=== PATIENT | male | born 1990 | race Caucasian/White ===

== ENCOUNTER 2020-07-17 10:45 | Inpatient (IN) | payer OTHER ==
--- NOTE | 2020-07-17 11:22 | BHS.RME ---
Substance Use & Tx History - Substance Use History Heroin Substance amount: 2 BAGS Frequency of use: Daily Substance route: Injection (ex: intravenous or skin popping) Date of Last Use: 07/16/20 Cocaine- Powder Substance amount: 4-6 BAGS Frequency of use: Daily Substance route: Injection (ex: intravenous or skin popping) Date of Last Use: 07/16/20 (STARTED AT AGE 29) Marijuana/Hashish Substance amount: 1 JOINT Frequency of use: Less than 3 times per week Substance route: Smoking Date of Last Use: 07/17/20 (STARTED AGE 18) Nicotine Substance amount: 5 CIGGS Frequency of use: Daily Substance route: Smoking Date of Last Use: 07/17/20 (STARTED AGE 18) Physical/Psych/Mental Status - Behavior General Behavior: Increased activity (restlessness, agitation) Eye Contact: Normal - Cooperativeness Cooperativeness: Cooperative - Thinking Thought Processes: Tight, Logical, Goal Directed - Physical Health Problems Is patient presently having any pain?: No Does patient presently have any injuries (include location): No Does patient currently have a fever: No Is patient : No COWS - Scale Resting Pulse: 1= [place] 81-100 Sweatin= Chills/Flushing Restless Observation: 1= Difficult to Sit Still Pupil Size: 1= Pupils >than Normal Bone or Joint Aches: 2= Severe Diffuse Aches Runny Nose/ Eye Tearin= Runny Nose/Eyes GI Upset > 30mins: 1= Stomach Cramp Tremor Observation: 1= Tremor [place], Not Seen Yawning Observation: 2= >3x During Session Anxiety or Irritability: 2=Irritable/Anxious Goose Flesh Skin: 3=Piloerection COWS Score: 17
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
[2020-07-17] MEDS ORDERED: MAGNESIUM CITRATE 300 ML BOTTLE PO PRN (13:45)
[2020-07-17] MEDS ORDERED: MAGNESIUM HYDROX 2400MG/30ML ORAL SUSPENSION 30 ML CUP PO PRN (13:45)
[2020-07-17] MEDS ORDERED: BISMUTH SUBSALICYLATE 524 MG/30 ML UD PO PRN (13:45)
[2020-07-17] MEDS ORDERED: ONDANSETRON *ODT* 4 MG TABLET SL PRN (13:45)
[2020-07-17] MEDS ORDERED: MAG HYDROX/AL HYDROX/SIMETH 30 ML UNIT-DOSE CUP PO PRN (13:45)
[2020-07-17] MEDS ORDERED: ACETAMINOPHEN 325 MG TABLET (FP) PO PRN ×2 (13:45)
[2020-07-17] MEDS ORDERED: MENTHOL/PHENOL 1 EACH UD MM PRN (13:45)
[2020-07-17 13:51] VITALS: BMI 26.0
[2020-07-17] MEDS ORDERED: hydrOXYzine PAMOATE 25 MG CAPSULE (FP) PO SCH (14:00)
[2020-07-17] MEDS ORDERED: METHADONE HCL 10 MG TABLET (FOR DETOX USE ONLY) PO ONE (14:00)
[2020-07-17] MEDS: NICOTINE POLACRILEX 2 MG GUM BUC PRN (15:00)
[2020-07-17] MEDS: NICOTINE 7 MG/24 HOURS TOPICAL PATCH TD SCH (15:00)
[2020-07-17] MEDS: PRENATAL VITAMINS W/ FOLIC ACID TABLET (FP) PO SCH (15:04)
[2020-07-17] MEDS: METHOCARBAMOL 500 MG TABLET PO PRN (15:04)
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
[2020-07-17 17:36] LABS: HEMATOCRIT 38.4 % (35.4-49); HEMOGLOBIN 12.1 GM/dL (11.7-16.9); MCH 25.2 pg (25.7-33.7); MCHC 31.5 g/dl (32.0-35.9); MEAN CELL VOLUME 79.8 fl (80-96); MEAN PLT VOLUME 8.9 fl (7.5-11.1); PLATELET COUNT 217 K/MM3 (134-434); RBC 4.81 M/mm3 (4.00-5.60); RDW 14.4 % (11.9-15.9); WHITE BLOOD COUNT 7.9 K/mm3 (4.0-10.0)
[2020-07-17 17:46] LABS: ALBUMIN 3.5 g/dl (3.4-5.0); BILIRUBIN,TOTAL 0.3 mg/dL (0.2-1); BLOOD UREA NITROGEN 9.9 mg/dL (7-18); CALCIUM 9.3 mg/dL (8.5-10.1); CREATININE 0.7 mg/dL (0.55-1.3); POTASSIUM 4.4 mmol/L (3.5-5.1); TOT PROT 8.1 g/dl (6.4-8.2)
[2020-07-17] MEDS: MELATONIN 5 MG TABLETS PO SCH (23:19)
[2020-07-17] MEDS: THIAMINE HCL 100 MG TABLET (FP) PO SCH (23:20)
[2020-07-18] MEDS: METHOCARBAMOL 500 MG TABLET PO PRN ×2 (07:36→19:55)
[2020-07-18] MEDS: IBUPROFEN 400 MG TABLET (FP) PO PRN ×2 (07:36→19:55)
[2020-07-18] MEDS ORDERED: METHADONE HCL 5 MG TABLET (FOR DETOX USE ONLY) ONE (09:24)
[2020-07-18] MEDS ORDERED: METHADONE HCL 10 MG TABLET (FOR DETOX USE ONLY) ONE (09:25)
[2020-07-18] MEDS ORDERED: METHADONE (DETOX) 20 MG, METHADONE (DETOX) 5 MG PO ONE (10:00)
[2020-07-18] MEDS: diazePAM 5 MG TABLET PO PRN ×3 (10:33→19:54)
[2020-07-18] MEDS: PRENATAL VITAMINS W/ FOLIC ACID TABLET (FP) PO SCH (10:33)
[2020-07-18] MEDS: NICOTINE POLACRILEX 2 MG GUM BUC PRN ×2 (10:34→12:52)
[2020-07-18] MEDS: NICOTINE 7 MG/24 HOURS TOPICAL PATCH TD SCH (10:34)
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
--- NOTE | 2020-07-18 13:59 | PN ---
S COWS - Scale Resting Pulse: 0= [place] 80 or Below Sweatin= No chills or Flushing Restless Observation: 0= Sits Still Pupil Size: 1= Pupils >than Normal Bone or Joint Aches: 2= Severe Diffuse Aches Runny Nose/ Eye Tearin= Nasal Congestion GI Upset > 30mins: 2= Nausea/Diarrhea Tremor Observation of Outstretched Hands: 2= Slight Tremor Visible Yawning Observation: 1= 1-2x During Session Anxiety or Irritability: 2=Irritable/Anxious Goose Flesh Skin: 0=Smooth Skin COWS Score: 11 [facility] Progress Note (SOAP) Subjective: alert,irritable,anxious,interrupted sleep,tremor,pain in the body,back,nausea, Objective: 07/18/20 13:57 Vital Signs Temperature 97.1 F L 07/18/20 12:50 Pulse Rate 54 L 07/18/20 12:50 Respiratory Rate 18 07/18/20 12:50 Blood Pressure 120/72 07/18/20 12:50 O2 Sat by Pulse Oximetry (%) 100 07/18/20 12:50 Laboratory Last Values WBC 7.9 K/mm3 (4.0-10.0) 07/17/20 13:45 RBC 4.81 M/mm3 (4.00-5.60) 07/17/20 13:45 Hgb 12.1 GM/dL (11.7-16.9) 07/17/20 13:45 Hct 38.4 % (35.4-49) 07/17/20 13:45 MCV 79.8 fl (80-96) L 07/17/20 13:45 MCH 25.2 pg (25.7-33.7) L 07/17/20 13:45 MCHC 31.5 g/dl (32.0-35.9) L 07/17/20 13:45 RDW 14.4 % (11.9-15.9) D 07/17/20 13:45 Plt Count 217 K/MM3 (134-434) D 07/17/20 13:45 MPV 8.9 fl (7.5-11.1) 07/17/20 13:45 Sodium 138 mmol/L (136-145) 07/17/20 13:45 Potassium 4.4 mmol/L (3.5-5.1) 07/17/20 13:45 Chloride 101 mmol/L (98-107) 07/17/20 13:45 Carbon Dioxide 32 mmol/L (21-32) 07/17/20 13:45 Anion Gap 5 MMOL/L (8-16) L 07/17/20 13:45 BUN 9.9 mg/dL (7-18) 07/17/20 13:45 Creatinine 0.7 mg/dL (0.55-1.3) 07/17/20 13:45 Est GFR (CKD-EPI)AfAm 147.81 07/17/20 13:45 Est GFR (CKD-EPI)NonAf 127.53 07/17/20 13:45 Random Glucose 87 mg/dL (74-106) 07/17/20 13:45 Calcium 9.3 mg/dL (8.5-10.1) 07/17/20 13:45 Total Bilirubin 0.3 mg/dL (0.2-1) 07/17/20 13:45 AST 10 U/L (15-37) L 07/17/20 13:45 ALT 15 U/L (13-61) 07/17/20 13:45 Alkaline Phosphatase 89 U/L (45-117) 07/17/20 13:45 Total Protein 8.1 g/dl (6.4-8.2) 07/17/20 13:45 Albumin 3.5 g/dl (3.4-5.0) 07/17/20 13:45 Syphilis Serology Non-reactive (NONREACTIVE) 07/17/20 13:45 HIV Ag/Ab Combo Qual Negative (NEGATIVE) 07/17/20 13:45 Assessment: 07/18/20 13:58 withdrawal symptom Plan: continue detox methadone regimen,valium 10 mgs po q 4hrs pen for severe withdrawal
[2020-07-18] MEDS: cloNIDine HCL 0.1 MG TABLET PO PRN (15:04)
[2020-07-18] MEDS: hydrOXYzine PAMOATE 25 MG CAPSULE (FP) PO PRN (19:56)
[2020-07-18] MEDS: MELATONIN 5 MG TABLETS PO SCH (23:18)
[2020-07-18] MEDS: QUEtiapine FUMARATE 50 MG TABLET PO SCH (23:18)
[2020-07-18] MEDS: THIAMINE HCL 100 MG TABLET (FP) PO SCH (23:18)
[2020-07-19] MEDS: diazePAM 5 MG TABLET PO PRN ×3 (06:16→19:19)
[2020-07-19] MEDS: IBUPROFEN 400 MG TABLET (FP) PO PRN ×2 (07:17→22:47)
[2020-07-19] MEDS: METHOCARBAMOL 500 MG TABLET PO PRN ×2 (07:17→19:19)
[2020-07-19] MEDS: NICOTINE POLACRILEX 2 MG GUM BUC PRN ×3 (07:28→14:45)
[2020-07-19] MEDS ORDERED: METHADONE HCL 10 MG TABLET (FOR DETOX USE ONLY) PO ONE (10:00)
[2020-07-19] MEDS: PRENATAL VITAMINS W/ FOLIC ACID TABLET (FP) PO SCH (11:04)
[2020-07-19] MEDS: NICOTINE 7 MG/24 HOURS TOPICAL PATCH TD SCH (11:07)
[2020-07-19] MEDS: cloNIDine HCL 0.1 MG TABLET PO PRN (12:49)
--- NOTE | 2020-07-19 17:02 | PN ---
BHS COWS - Scale Resting Pulse: 0= [place] 80 or Below Sweatin= Chills/Flushing Restless Observation: 1= Difficult to Sit Still Pupil Size: 0= Normal to Room Light Bone or Joint Aches: 1= Mild Discomfort Runny Nose/ Eye Tearin= Nasal Congestion GI Upset > 30mins: 1= Stomach Cramp Tremor Observation of Outstretched Hands: 0= None Yawning Observation: 1= 1-2x During Session Anxiety or Irritability: 2=Irritable/Anxious Goose Flesh Skin: 0=Smooth Skin COWS Score: 8 [facility] Progress Note (SOAP) Subjective: Anxious, Sweating, Nasal Congestion, Body Aches. Objective: Patient A & O X 3, Observed Ambulating on Detox Unit Unassisted. In No Acute Distress. 07/19/20 17:02 Vital Signs Temperature 97.3 F L 07/19/20 12:19 Pulse Rate 73 07/19/20 12:19 Respiratory Rate 18 07/19/20 12:19 Blood Pressure 135/79 07/19/20 12:19 O2 Sat by Pulse Oximetry (%) 95 07/19/20 12:19 Laboratory Tests 07/17/20 07/17/20 07/17/20 13:45 13:45 13:45 WBC 7.9 RBC 4.81 Hgb 12.1 Hct 38.4 MCV 79.8 L MCH 25.2 L MCHC 31.5 L RDW 14.4 D Plt Count 217 D MPV 8.9 Sodium 138 Potassium 4.4 Chloride 101 Carbon Dioxide 32 Anion Gap 5 L BUN 9.9 Creatinine 0.7 Est GFR (CKD-EPI)AfAm 147.81 Est GFR (CKD-EPI)NonAf 127.53 Random Glucose 87 Calcium 9.3 Total Bilirubin 0.3 AST 10 L ALT 15 Alkaline Phosphatase 89 Total Protein 8.1 Albumin 3.5 Syphilis Serology Non-reactive COVID-19 ([facility]) HIV Ag/Ab Combo Qual 07/17/20 07/17/20 13:45 14:45 WBC RBC Hgb Hct MCV MCH MCHC RDW Plt Count MPV Sodium Potassium Chloride Carbon Dioxide Anion Gap BUN Creatinine Est GFR (CKD-EPI)AfAm Est GFR (CKD-EPI)NonAf Random Glucose Calcium Total Bilirubin AST ALT Alkaline Phosphatase Total Protein Albumin Syphilis Serology COVID-19 ([facility]) Not detected HIV Ag/Ab Combo Qual Negative Lab Results noted. Assessment: 07/19/20 17:03 WITHDRAWAL SYMPTOMS. Plan: Continue Detox.
[2020-07-19] MEDS: THIAMINE HCL 100 MG TABLET (FP) PO SCH (22:44)
[2020-07-19] MEDS: QUEtiapine FUMARATE 50 MG TABLET PO SCH (22:44)
[2020-07-19] MEDS: MELATONIN 5 MG TABLETS PO SCH (22:45)
[2020-07-20] MEDS ORDERED: METHADONE HCL 5 MG TABLET (FOR DETOX USE ONLY) ONE (09:16)
[2020-07-20] MEDS ORDERED: METHADONE HCL 10 MG TABLET (FOR DETOX USE ONLY) ONE (09:16)
[2020-07-20] MEDS ORDERED: METHADONE (DETOX) 10 MG, METHADONE (DETOX) 5 MG PO ONE (10:00)
[2020-07-20] MEDS: PRENATAL VITAMINS W/ FOLIC ACID TABLET (FP) PO SCH (10:33)
[2020-07-20] MEDS: NICOTINE 7 MG/24 HOURS TOPICAL PATCH TD SCH (10:33)
[2020-07-20] MEDS: NICOTINE POLACRILEX 2 MG GUM BUC PRN ×3 (10:33→17:05)
[2020-07-20] MEDS: hydrOXYzine PAMOATE 25 MG CAPSULE (FP) PO PRN ×2 (10:34→17:05)
[2020-07-20] MEDS: METHOCARBAMOL 500 MG TABLET PO PRN ×2 (10:34→17:05)
[2020-07-20] MEDS: IBUPROFEN 400 MG TABLET (FP) PO PRN ×2 (10:34→17:05)
--- NOTE | 2020-07-20 17:24 | PN ---
BHS COWS - Scale Resting Pulse: 0= [place] 80 or Below Sweatin= Chills/Flushing Restless Observation: 0= Sits Still Pupil Size: 0= Normal to Room Light Bone or Joint Aches: 1= Mild Discomfort Runny Nose/ Eye Tearin= Nasal Congestion GI Upset > 30mins: 1= Stomach Cramp Tremor Observation of Outstretched Hands: 0= None Yawning Observation: 0= None Anxiety or Irritability: 2=Irritable/Anxious Goose Flesh Skin: 0=Smooth Skin COWS Score: 6 [facility] Progress Note (SOAP) Subjective: Interrupted sleep, chronic back pain Objective: 07/20/20 17:23 Last Vital Signs Temp Pulse Resp BP Pulse Ox 98.2 F 71 18 122/63 98 07/20/20 12:56 07/20/20 12:56 07/20/20 12:56 07/20/20 12:56 07/20/20 05:29 Laboratory Tests 07/17/20 07/17/20 07/17/20 13:45 13:45 13:45 WBC 7.9 RBC 4.81 Hgb 12.1 Hct 38.4 MCV 79.8 L MCH 25.2 L MCHC 31.5 L RDW 14.4 D Plt Count 217 D MPV 8.9 Sodium 138 Potassium 4.4 Chloride 101 Carbon Dioxide 32 Anion Gap 5 L BUN 9.9 Creatinine 0.7 Est GFR (CKD-EPI)AfAm 147.81 Est GFR (CKD-EPI)NonAf 127.53 Random Glucose 87 Calcium 9.3 Total Bilirubin 0.3 AST 10 L ALT 15 Alkaline Phosphatase 89 Total Protein 8.1 Albumin 3.5 Syphilis Serology Non-reactive COVID-19 ([facility]) HIV Ag/Ab Combo Qual 07/17/20 07/17/20 13:45 14:45 WBC RBC Hgb Hct MCV MCH MCHC RDW Plt Count MPV Sodium Potassium Chloride Carbon Dioxide Anion Gap BUN Creatinine Est GFR (CKD-EPI)AfAm Est GFR (CKD-EPI)NonAf Random Glucose Calcium Total Bilirubin AST ALT Alkaline Phosphatase Total Protein Albumin Syphilis Serology COVID-19 ([facility]) Not detected HIV Ag/Ab Combo Qual Negative Labs reviewed Assessment: 07/20/20 17:24 Withdrawal sxs Plan: Continue detox Encourage PO water intake
[2020-07-20] MEDS ORDERED: QUEtiapine FUMARATE 25 MG TABLET ONE (21:50)
[2020-07-20] MEDS: THIAMINE HCL 100 MG TABLET (FP) PO SCH (22:18)
[2020-07-20] MEDS: MELATONIN 5 MG TABLETS PO SCH (22:19)
[2020-07-20] MEDS: QUEtiapine FUMARATE 50 MG TABLET PO SCH (22:19)
[2020-07-21] MEDS: IBUPROFEN 400 MG TABLET (FP) PO PRN ×3 (06:18→21:28)
[2020-07-21] MEDS: METHOCARBAMOL 500 MG TABLET PO PRN ×3 (06:20→21:28)
[2020-07-21] MEDS: NICOTINE POLACRILEX 2 MG GUM BUC PRN ×3 (09:02→19:13)
[2020-07-21] MEDS ORDERED: METHADONE HCL 10 MG TABLET (FOR DETOX USE ONLY) PO ONE (10:00)
[2020-07-21] MEDS: hydrOXYzine PAMOATE 25 MG CAPSULE (FP) PO PRN ×2 (10:12→21:28)
[2020-07-21] MEDS: NICOTINE 7 MG/24 HOURS TOPICAL PATCH TD SCH (10:12)
[2020-07-21] MEDS: PRENATAL VITAMINS W/ FOLIC ACID TABLET (FP) PO SCH (10:12)
--- NOTE | 2020-07-21 10:37 | PN ---
BHS COWS - Scale Resting Pulse: 0= [place] 80 or Below Sweatin= No chills or Flushing Restless Observation: 0= Sits Still Pupil Size: 1= Pupils >than Normal Bone or Joint Aches: 1= Mild Discomfort Runny Nose/ Eye Tearin= Nasal Congestion GI Upset > 30mins: 1= Stomach Cramp Tremor Observation of Outstretched Hands: 1= Tremor [place], Not Seen Yawning Observation: 0= None Anxiety or Irritability: 2=Irritable/Anxious Goose Flesh Skin: 0=Smooth Skin COWS Score: 7 B[facility] Progress Note (SOAP) Subjective: alert,irritable,anxious,interrupted sleep,aching pain Objective: 07/21/20 16:44 Vital Signs Temperature 98.2 F 07/21/20 12:55 Pulse Rate 74 07/21/20 12:55 Respiratory Rate 16 07/21/20 12:55 Blood Pressure 125/75 07/21/20 12:55 O2 Sat by Pulse Oximetry (%) 98 07/21/20 12:55 Assessment: 07/21/20 16:45 withdrawal symptom Plan: continue detox methadone regimen,discharge in am
[2020-07-21] MEDS: THIAMINE HCL 100 MG TABLET (FP) PO SCH (21:28)
[2020-07-21] MEDS: QUEtiapine FUMARATE 50 MG TABLET PO SCH (21:28)
[2020-07-21] MEDS: MELATONIN 5 MG TABLETS PO SCH (21:30)
[2020-07-22] MEDS: IBUPROFEN 400 MG TABLET (FP) PO PRN (05:30)
[2020-07-22] MEDS: NICOTINE POLACRILEX 2 MG GUM BUC PRN (05:31)
[2020-07-22] MEDS: METHOCARBAMOL 500 MG TABLET PO PRN (05:31)
[2020-07-22] MEDS ORDERED: METHADONE HCL 5 MG TABLET (FOR DETOX USE ONLY) PO ONE (06:00)
[2020-07-22 06:09] VITALS: BP 109/67; PULSE 58; TEMP 97.8
--- NOTE | 2020-07-22 09:38 | PN ---
BHS COWS - Scale Resting Pulse: 0= [place] 80 or Below Sweatin= No chills or Flushing Restless Observation: 0= Sits Still Pupil Size: 0= Normal to Room Light Bone or Joint Aches: 0= None Runny Nose/ Eye Tearin= None GI Upset > 30mins: 0= None Tremor Observation of Outstretched Hands: 0= None Yawning Observation: 0= None Anxiety or Irritability: 1=Feels Anxious/Irritable Goose Flesh Skin: 0=Smooth Skin COWS Score: 1 S Progress Note (SOAP) Subjective: alert,no complaint Objective: 07/22/20 14:38 Vital Signs Temperature 97.8 F 07/22/20 06:08 Pulse Rate 58 L 07/22/20 06:08 Respiratory Rate 18 07/22/20 06:08 Blood Pressure 109/67 07/22/20 06:08 O2 Sat by Pulse Oximetry (%) 100 07/22/20 06:08 Assessment: 07/22/20 14:38 detox completed,no withdrawal symptom Plan: stable for discharge today,stated will go to [facility] methadone maintenance clinic near where he live
--- NOTE | 2020-07-22 09:38 | DS ---
[facility] Detox Discharge Summary Admission Date: 07/17/20 Discharge Date: 07/22/20 - History Present History: Cannabis Dependence, Cocaine Dependence, Opioid Dependence Additional Comments: alert,oriented x 3 lung clear on auscultation bilaterally abdomen soft,no distension,no pain ambulation in the unit detox completed,no withdrawal symptom stable for discharge today total time discharge spending 30 minutes follow up with after care program as arrangement,will to to methadone maintenance clinic near where he live Pertinent Past History: ptsd insomnia history of mood disorder - Physical Exam Results Vital Signs: Vital Signs Temperature 97.8 F 07/22/20 06:08 Pulse Rate 58 L 07/22/20 06:08 Respiratory Rate 18 07/22/20 06:08 Blood Pressure 109/67 07/22/20 06:08 O2 Sat by Pulse Oximetry (%) 100 07/22/20 06:08 Pertinent Admission Physical Exam Findings: withdrawal signs and symptom Laboratory Last Values WBC 7.9 K/mm3 (4.0-10.0) 07/17/20 13:45 RBC 4.81 M/mm3 (4.00-5.60) 07/17/20 13:45 Hgb 12.1 GM/dL (11.7-16.9) 07/17/20 13:45 Hct 38.4 % (35.4-49) 07/17/20 13:45 MCV 79.8 fl (80-96) L 07/17/20 13:45 MCH 25.2 pg (25.7-33.7) L 07/17/20 13:45 MCHC 31.5 g/dl (32.0-35.9) L 07/17/20 13:45 RDW 14.4 % (11.9-15.9) D 07/17/20 13:45 Plt Count 217 K/MM3 (134-434) D 07/17/20 13:45 MPV 8.9 fl (7.5-11.1) 07/17/20 13:45 Sodium 138 mmol/L (136-145) 07/17/20 13:45 Potassium 4.4 mmol/L (3.5-5.1) 07/17/20 13:45 Chloride 101 mmol/L (98-107) 07/17/20 13:45 Carbon Dioxide 32 mmol/L (21-32) 07/17/20 13:45 Anion Gap 5 MMOL/L (8-16) L 07/17/20 13:45 BUN 9.9 mg/dL (7-18) 07/17/20 13:45 Creatinine 0.7 mg/dL (0.55-1.3) 07/17/20 13:45 Est GFR (CKD-EPI)AfAm 147.81 07/17/20 13:45 Est GFR (CKD-EPI)NonAf 127.53 07/17/20 13:45 Random Glucose 87 mg/dL (74-106) 07/17/20 13:45 Calcium 9.3 mg/dL (8.5-10.1) 07/17/20 13:45 Total Bilirubin 0.3 mg/dL (0.2-1) 07/17/20 13:45 AST 10 U/L (15-37) L 07/17/20 13:45 ALT 15 U/L (13-61) 07/17/20 13:45 Alkaline Phosphatase 89 U/L (45-117) 07/17/20 13:45 Total Protein 8.1 g/dl (6.4-8.2) 07/17/20 13:45 Albumin 3.5 g/dl (3.4-5.0) 07/17/20 13:45 Syphilis Serology Non-reactive (NONREACTIVE) 07/17/20 13:45 COVID-19 ([facility]) Not detected (Not Detected) 07/17/20 14:45 HIV Ag/Ab Combo Qual Negative (NEGATIVE) 07/17/20 13:45 Vital Signs Temperature 97.8 F 07/22/20 06:08 Pulse Rate 58 L 07/22/20 06:08 Respiratory Rate 18 07/22/20 06:08 Blood Pressure 109/67 07/22/20 06:08 O2 Sat by Pulse Oximetry (%) 100 07/22/20 06:08 - Treatment Hospital Course: Detox Protocol Followed, Detoxed Safely, Responded well, Discharged Condition Good, Rehab Referral Accepted Patient has Accepted [facility] - Medication Discharge Medications: Ambulatory Orders NK [No Known Home Medication] 07/17/20 - Diagnosis (1) Opioid withdrawal Status: Acute (2) Substance-induced sleep disorder Status: Acute (3) Cannabis dependence Status: Chronic (4) Cocaine dependence Status: Chronic Qualifiers: Substance use status: uncomplicated Qualified Code(s): F14.20 - Cocaine dependence, uncomplicated (5) History of mood disorder Status: Chronic (6) Nicotine dependence Status: Chronic Qualifiers: Nicotine product type: cigarettes Substance use status: uncomplicated Qualified Code(s): F17.210 - Nicotine dependence, cigarettes, uncomplicated (7) PTSD (post-traumatic stress disorder) Status: Chronic - AMA Did Patient Leave Against Medical Advice: No
== END 2020-07-22 09:00 | disposition home or self-care (01) | DRG 773 ==
LOC: YASAS 10:45 → Y6N 14:37
PROVIDERS: ADMIT Allergy & Immunology; ATTEND Allergy & Immunology
PROC: HZ2ZZZZ Detoxification Services for Substance Abuse Treatment (ICD-10-PCS; principal; 2020-07-17)
DX: F11.23 Opioid dependence with withdrawal (principal); F14.20 Cocaine dependence, uncomplicated; F12.20 Cannabis dependence, uncomplicated; F17.210 Nicotine dependence, cigarettes, uncomplicated; F19.282 Other psychoactive substance dependence with psychoactive substance-induced sleep disorder; F41.9 Anxiety disorder, unspecified; F39 Unspecified mood [affective] disorder; F43.10 Post-traumatic stress disorder, unspecified; J45.909 Unspecified asthma, uncomplicated; Z62.810 Personal history of physical and sexual abuse in childhood; Z91.5 Personal history of self-harm; Z56.0 Unemployment, unspecified
CPT/HCPCS: 36415; 80053; 85027; 86780; 87389; J0735; U0003

== ENCOUNTER 2021-03-04 18:15 | Inpatient (IN) | payer OTHER ==
[2021-03-04] MEDS ORDERED: BISMUTH SUBSALICYLATE 524 MG/30 ML UD PO PRN (19:19)
[2021-03-04] MEDS ORDERED: MAGNESIUM CITRATE 300 ML BOTTLE PO PRN (19:19)
[2021-03-04] MEDS ORDERED: MENTHOL/PHENOL 1 EACH UD MM PRN (19:19)
[2021-03-04] MEDS ORDERED: ACETAMINOPHEN 325 MG TABLET (FP) PO PRN ×2 (19:19)
[2021-03-04] MEDS ORDERED: ONDANSETRON *ODT* 4 MG TABLET SL PRN (19:19)
[2021-03-04] MEDS ORDERED: METHOCARBAMOL 500 MG TABLET PO PRN (19:19)
[2021-03-04] MEDS ORDERED: MAG HYDROX/AL HYDROX/SIMETH 30 ML UNIT-DOSE CUP PO PRN (19:19)
[2021-03-04] MEDS ORDERED: IBUPROFEN 400 MG TABLET (FP) PO PRN (19:19)
[2021-03-04] MEDS ORDERED: MAGNESIUM HYDROX 2400MG/30ML ORAL SUSPENSION 30 ML CUP PO PRN (19:19)
[2021-03-04] MEDS ORDERED: cloNIDine HCL 0.1 MG TABLET PO PRN (19:28)
[2021-03-04] MEDS ORDERED: METHADONE HCL 10 MG TABLET (FOR DETOX USE ONLY) PO ONE (19:28)
[2021-03-04 19:40] VITALS: BMI 22.3
[2021-03-04] MEDS: diazePAM 5 MG TABLET PO PRN (20:03)
[2021-03-04] MEDS: hydrOXYzine PAMOATE 25 MG CAPSULE (FP) PO PRN (20:03)
[2021-03-04] MEDS: diazePAM 5 MG TABLET PO SCH (22:10)
[2021-03-04] MEDS: THIAMINE HCL 100 MG TABLET (FP) PO SCH (22:11)
[2021-03-04] MEDS: SULFAMETHOXAZOLE/TRIMETHOPRIM 800MG/160MG D.S. TABLET PO SCH (22:11)
[2021-03-04] MEDS: BACITRACIN 0.9 GM PACKET TP SCH (22:11)
[2021-03-04] MEDS: MELATONIN 5 MG TABLETS PO SCH (22:11)
[2021-03-04] MEDS: NICOTINE POLACRILEX 2 MG GUM BUC PRN (22:13)
[2021-03-05] MEDS: diazePAM 5 MG TABLET PO SCH ×4 (05:56→22:14)
[2021-03-05] MEDS ORDERED: METHADONE HCL 10 MG TABLET (FOR DETOX USE ONLY) ONE (08:34)
[2021-03-05] MEDS ORDERED: METHADONE HCL 5 MG TABLET (FOR DETOX USE ONLY) ONE (08:35)
[2021-03-05] MEDS ORDERED: METHADONE (DETOX) 20 MG, METHADONE (DETOX) 5 MG PO ONE (10:00)
[2021-03-05 10:16] LABS: HEMATOCRIT 37.9 % (35.4-49); MCH 24.5 pg (25.7-33.7); MCHC 31.6 g/dl (32.0-35.9); MEAN CELL VOLUME 77.5 fl (80-96); MEAN PLT VOLUME 8.4 fl (7.5-11.1); PLATELET COUNT 202 K/MM3 (134-434); RBC 4.89 M/mm3 (4.00-5.60); RDW 18.5 % (11.9-15.9); WHITE BLOOD COUNT 5.3 K/mm3 (4.0-10.0)
[2021-03-05 10:18] LABS: ALBUMIN 3.4 g/dl (3.4-5.0); BLOOD UREA NITROGEN 15.7 mg/dL (7-18)
[2021-03-05] MEDS: SULFAMETHOXAZOLE/TRIMETHOPRIM 800MG/160MG D.S. TABLET PO SCH ×2 (10:19→22:14)
[2021-03-05] MEDS: PRENATAL VITAMINS W/ FOLIC ACID TABLET (FP) PO SCH (10:19)
[2021-03-05] MEDS: BACITRACIN 0.9 GM PACKET TP SCH ×2 (10:19→22:14)
[2021-03-05 10:21] LABS: CREATININE 0.8 mg/dL (0.55-1.3)
[2021-03-05] MEDS: NICOTINE POLACRILEX 2 MG GUM BUC PRN ×3 (10:22→18:10)
[2021-03-05 10:23] LABS: BILIRUBIN,TOTAL 0.2 mg/dL (0.2-1)
[2021-03-05] MEDS: diazePAM 5 MG TABLET PO PRN (14:29)
[2021-03-05] MEDS: THIAMINE HCL 100 MG TABLET (FP) PO SCH (22:14)
[2021-03-05] MEDS: hydrOXYzine PAMOATE 25 MG CAPSULE (FP) PO PRN (22:14)
[2021-03-05] MEDS: MELATONIN 5 MG TABLETS PO SCH (22:15)
[2021-03-06] MEDS: diazePAM 5 MG TABLET PO SCH ×2 (06:14→14:06)
[2021-03-06] MEDS: hydrOXYzine PAMOATE 25 MG CAPSULE (FP) PO PRN (06:14)
[2021-03-06] MEDS: NICOTINE POLACRILEX 2 MG GUM BUC PRN ×2 (06:15→10:16)
[2021-03-06] MEDS ORDERED: METHADONE HCL 10 MG TABLET (FOR DETOX USE ONLY) PO ONE (10:00)
[2021-03-06] MEDS: BACITRACIN 0.9 GM PACKET TP SCH (10:15)
[2021-03-06] MEDS: SULFAMETHOXAZOLE/TRIMETHOPRIM 800MG/160MG D.S. TABLET PO SCH (10:16)
[2021-03-06] MEDS: PRENATAL VITAMINS W/ FOLIC ACID TABLET (FP) PO SCH (10:16)
[2021-03-06] MEDS: diazePAM 5 MG TABLET PO PRN (10:18)
[2021-03-06 13:37] VITALS: BP 118/62; PULSE 51; TEMP 97.3
[2021-03-07] MEDS ORDERED: diazePAM 5 MG TABLET PO SCH (06:00)
[2021-03-07 06:06] LABS: SARS-CoV-2 NAA Not Detected (Not Detected)
[2021-03-07] MEDS ORDERED: METHADONE (DETOX) 10 MG, METHADONE (DETOX) 5 MG PO ONE (10:00)
[2021-03-08] MEDS ORDERED: diazePAM 5 MG TABLET PO ONE (06:00)
[2021-03-08] MEDS ORDERED: METHADONE HCL 10 MG TABLET (FOR DETOX USE ONLY) PO ONE (10:00)
[2021-03-09] MEDS ORDERED: METHADONE HCL 5 MG TABLET (FOR DETOX USE ONLY) PO ONE (06:00)
== END 2021-03-06 14:57 | disposition left against medical advice (07) | DRG 770 ==
LOC: YASAS 18:15 → Y3N 19:07 → Y6N 03-05 14:14
PROVIDERS: ADMIT Allergy & Immunology; ATTEND Allergy & Immunology
PROC: HZ2ZZZZ Detoxification Services for Substance Abuse Treatment (ICD-10-PCS; principal; 2021-03-04)
DX: F11.23 Opioid dependence with withdrawal (principal); F13.20 Sedative, hypnotic or anxiolytic dependence, uncomplicated; F14.20 Cocaine dependence, uncomplicated; F12.10 Cannabis abuse, uncomplicated; F17.210 Nicotine dependence, cigarettes, uncomplicated; F41.9 Anxiety disorder, unspecified; L03.90 Cellulitis, unspecified
CPT/HCPCS: 36415; 80053; 85027; 86780; 93005; 93010; C9803; U0003; U0005